=== PATIENT | male | born 1955 | race Caucasian/White ===

== ENCOUNTER 2019-05-27 09:31 | Day surgery (SDC) | payer BC, OTHER ==
[~2019-05-27] VITALS: Ht 188 cm; Wt 86.2 kg
--- NOTE | ~2019-05-27 | O ---
[facility] [place] [address] OPERATIVE REPORT Name: ALVARO PECK Room #: DEP [facility] M..#: [id number] Admission: 05/27/19 Attend Phys: Raghav Abdullahi MD Discharge: 05/27/19 Date of : 59 Report #: [id number] THIS REPORT FOR: cc: KIKE - No family physician/PCP KIKE - No family physician/PCP Raghav Abdullahi MD ~ CC: [facility] physician/PCP Raghav Abdullahi PREOPERATIVE DIAGNOSIS: Mass, posterior left ear measuring 2.5 cm. POSTOPERATIVE DIAGNOSIS: Mass, posterior left ear measuring 2.5 cm consistent with a large sebaceous cyst. ANESTHESIA: IV sedation, local 0.25% Marcaine. COMPLICATIONS: None. BLOOD LOSS: 5 mL. SURGEON: Raghav Abdullahi MD PROCEDURE PERFORMED: Excision of left posterior ear mass. DESCRIPTION OF PROCEDURE: With the patient in the slightly lateral position, his head was tilted to the right. The area was prepped and draped in sterile fashion. A 0.25% Marcaine was used to anesthetize the skin. Timeout was performed. The patient did receive preoperative IV antibiotics. After anesthetizing the skin and subcutaneous tissue, the skin was excised around the base of this. The skin is pretty normal thickness anteriorly; however, posteriorly the skin is pretty thin and the mass was entered and there was cheesy material consistent with sebaceous cyst. The rest of was then dissected free without difficulty. Skin was then cleaned, irrigated and closed with 5-0 nylon suture. Antibiotic ointment, 4 x 4 tape was applied. The patient was taken to recovery room. By: [id number] Raghav Abdullahi MD /nt
--- NOTE | ~2019-05-27 | H ---
[facility] [place] [address] HISTORY AND PHYSICAL Name: ALVARO PECK Room #: PRE [place] M.R.#: [id number] Admission: Attend Phys: Raghav Abdullahi MD Discharge: Date of : 59 Report #: [id number] THIS REPORT FOR: //name// CC: [facility] physician/PCP Raghav Abdullahi HISTORY OF PRESENT ILLNESS: The patient is a 64-year-old who is here for excision of a mass behind the left ear. He has had this over a couple of months. There is a small lump that was first noticed and it is getting quite large. Had a cyst removed from the right ear in the past. The patient denies any drainage. No bleeding. The mass does feel soft. It is quite large. The patient is recommended to have this removed and to determine the etiology, suspect this could be a lipoma. PAST MEDICAL HISTORY: He denies any illnesses. MEDICATIONS: No medications. ALLERGIES: Do not have any allergies. PAST SURGICAL HISTORY: He did have a complicated gallbladder disease and had surgery in 07/2016. FAMILY HISTORY: Father at age 60 from cancer. SOCIAL HISTORY: The patient works in sales. He does smoke 10 cigarettes a day or so. He drinks occasionally. REVIEW OF SYSTEMS: No chest pain, shortness of breath or palpitation. PHYSICAL EXAMINATION: GENERAL: The patient is well groomed, well-nourished male. HEENT: He has a large size mass in the back of the ear over the area of the earlobe. It is about 2 cm in size. Broad based. Feels soft, probably a lipoma. Rest of the head, neck exam is unremarkable. NECK: No neck masses. No adenopathy. LUNGS: Clear. HEART: Regular rate and rhythm. No murmur or gallop. ABDOMEN: Soft, nondistended, nontender. EXTREMITIES: No cyanosis, clubbing, edema. IMPRESSION AND PLAN: The patient with a mass behind the left ear. Excision is recommended. Probably a lipoma, but quite unusual lesion. The patient is here [facility] [place] [address] HISTORY AND PHYSICAL Name: ALVARO PECK Room #: PRE [place] M.R.#: [id number] Admission: Attend Phys: Raghav Abdullahi MD Discharge: Date of : 59 Report #: [id number] for excision of this mass. Should be able to do this under IV sedation in lateral position. By: [id number] Raghav Abdullahi MD /nt
[~2019-05-27 09:31] MED LIST: HYDROCODONE-AP1 EAC6 PO
[2019-05-27 10:41] VITALS: BP 159/77
[2019-05-27] MEDS ORDERED: NORCO 5-325 TA1 EAC1 PO (12:08)
[2019-05-27 12:24] VITALS: BP 159/77
--- NOTE | 2019-05-30 18:06 | PATH ---
[facility] [address] [place] [address] PATHOLOGY RPT PROCEDURE Name: ANTON PECK Room #: DEP [facility] M.R.#: [id number] Admission: 05/27/19 Date of : 59 Discharge: 05/27/19 Report #: [id number] Path Case #: [id number] [facility] Accession Number: [id number] . 01 Material submitted: . ear - LEFT EAR SEBACEOUS CYST. Modifiers: left . 01 Clinical history: . Disorder of the skin and subcutaneous tissue, unspecified . 02 Diagnosis: Ear lesion, excision: - Mature keratinous cyst. - Negative for malignancy. (IUV:pit 05/30/2019) . QTP 05/30/2019 1209 Local . 02 Electronically signed: . India Muhammad MD, Pathologist NPI- [id number] . 01 Gross description: . The specimen is received in formalin, labeled "Anton Peck, left ear sebaceous cyst" and consists of a partially disrupted 2.8 x 2.0 x 1.5 cm white cyst partially covered by a wrinkled segment of pink-nunez skin. The cyst contains soft amorphous white-nunez material and a credit resolution representative section is submitted in A1. (SDY; 05/27/2019) SYU/SYU 05/27/2019 1612 Local . 02 Pathologist provided ICD-10: L72.9 . 02 CPT . 687636 Specimen Comment: A courtesy copy of this report has been sent to [phone] Specimen Comment: Report sent to Performed at: [address], [place], [place] [id number] MD Deangelo Lopez MD Phone: [phone] Performed at: [address] [id number] MD India Muhammad MD Phone: [phone]
== END 2019-05-27 12:50 | disposition home or self-care (01) ==
LOC: TBA 09:31 → OR 09:31
DX: H93.8X2 Other specified disorders of left ear (principal); L72.8 Other follicular cysts of the skin and subcutaneous tissue; F17.210 Nicotine dependence, cigarettes, uncomplicated; Z98.890 Other specified postprocedural states; Z85.828 Personal history of other malignant neoplasm of skin; Z90.49 Acquired absence of other specified parts of digestive tract; Z79.891 Long term (current) use of opiate analgesic
CPT/HCPCS: 50101; 50386; 62110; 62850; 70005